=== PATIENT | male | born 1950 | race Caucasian/White ===

== ENCOUNTER 2018-10-23 15:57 | Emergency (ER) | payer OTHER ==
[~2018-10-23] VITALS: Ht 182.9 cm; Wt 81.7 kg
[2018-10-23 16:32] LABS: HEMATOCRIT 42.7 % (42.0-52.0); HEMOGLOBIN 14.4 gm/dL (14.0-18.0); MCHC 33.6 g/dL (28.0-37.0); MCV 86.3 fL (80.0-100.0); PLATELET COUNT 214 thou/uL (150-400); RBC 4.96 mil/uL (4.50-6.00); RDW 14.2 % (10.5-14.5); WBC 6.6 thou/uL (4.0-11.0)
[2018-10-23 16:38] LABS: ANION GAP 14 mmol/L (7-16); BUN 18 mg/dL (7-18); CALCIUM 9.5 mg/dL (8.5-10.1); CHLORIDE 107 mmol/L (98-107); CO2 21 mmol/L (21-32); CREATININE 1.3 mg/dL (0.7-1.3); GLUCOSE 119 mg/dL (74-106); POTASSIUM 3.2 mmol/L (3.5-5.1); SODIUM 142 mmol/L (136-145)
[2018-10-23 16:48] LABS: ALBUMIN 4.1 g/dL (3.4-5.0); SGOT 23 U/L (15-37); SGPT 29 U/L (30-65); TOTAL BILIRUBIN 0.9 mg/dL (<0.1-1.0); TOTAL PROTEIN 7.7 g/dL (6.4-8.2); TROPONIN-I <0.06 ng/mL (<0.06)
[2018-10-23] MEDS ORDERED: ATIVAN0.5 MG PO (17:22)
[2018-10-23 17:23] LABS: ABSOLUTE NEUTROPHILS 4.4 thou/uL (1.4-8.2)
[2018-10-23 17:24] LABS: ANISOCYTOSIS SLIGHT; LARGE PLATELETS OCCASIONAL; POIKILOCYTOSIS SLIGHT
[2018-10-23 17:47] LABS: URINE BILIRUBIN NEGATIVE (Negative); URINE BLOOD 2+ (Negative); URINE CLARITY CLEAR; URINE COLOR YELLOW; URINE GLUCOSE-RANDOM* NEGATIVE (Negative); URINE KETONES NEGATIVE (Negative); URINE LEUKOCYTES-REFLEX NEGATIVE (Negative); URINE NITRITE-REFLEX NEGATIVE (Negative); URINE PROTEIN (DIPSTICK) TRACE (Negative); URINE UROBILINOGEN 0.2 E.U./dl (0.2-1.0)
[2018-10-23 17:50] VITALS: BP 136/73
[2018-10-23 17:54] LABS: AMP/METHAMP Negative (Negative); BARBITURATES Negative (Negative); BENZODIAZEPINES Negative (Negative); COCAINE Negative (Negative); METHADONE Negative (Negative); OPIATES Negative (Negative); PCP Negative (Negative)
[2018-10-23 18:02] LABS: SQUAMOUS 4-10 Moderate /LPF (0-3)
[2018-10-23 18:03] LABS: FINE GRANULAR CASTS 0-3 Few /LPF (None Seen)
[2018-10-23 18:05] LABS: BACTERIA-REFLEX 1-9 Few /HPF (None Seen); CRYSTALS None Seen /LPF (None Seen); URINE WBC-REFLEX 6-15 Few /HPF (0-5)
--- NOTE | 2018-10-25 14:10 | EKG ---
[address] [address] ELECTROCARDIOGRAM REPORT Name: SAMANTHA MCDUFFIE Room #: DEP [facility], [facility]ENT[facility]ELA CAMPUSDamon#: [id number] ������������������ Admission: 10/23/18 ������������������ Attend Phys: Discharge: 10/23/18 ������������������ Date of : 54 Report #: [id number] ����������������������������������������������������������������� [id number] THIS REPORT FOR: //name// [facility] ED Test Date: 2018-10-23 Test Time: 15:53:55 Pat Name: SAMANTHA MCDUFFIE Department: Room: Gender: M Blender: BUBBA : 1950 Requested By: Jason Márquez Order Number: [id number] MD: Ernesto Gee Measurements Intervals [place] Rate: 117 P: 67 FL: 176 QRS: -49 QRSD: 102 T: 78 QT: 329 QTc: 459 Interpretive Statements Sinus tachycardia Atrial premature complexes Incomplete RBBB and LAFB Left ventricular hypertrophy No previous ECG available for comparison Electronically Signed On 10-25-2018 14:10:23 CDT by Ernesto Gee [email or web address] ��������������������������������������������� <ELECTRONICALLY SIGNED> ���������������������������������������� By: Ernesto Gee MD, [facility] ��������������������������������������������� 10/25/18 1410 1553 1553 Ernesto Gee MD, FACC /EPI
== END 2018-10-23 17:52 | disposition home or self-care (01) ==
LOC: ER 15:57
PROVIDERS: Emergency Medicine
DX: I25.10 Atherosclerotic heart disease of native coronary artery without angina pectoris (principal); F41.9 Anxiety disorder, unspecified; R06.4 Hyperventilation; R42 Dizziness and giddiness; I25.2 Old myocardial infarction; Z95.2 Presence of prosthetic heart valve; Z88.8 Allergy status to other drugs, medicaments and biological substances